=== PATIENT | female | born 1995 | race Hispanic/Latino ===

== ENCOUNTER 2021-10-23 06:36 | Observation (INO) | payer BC ==
[2021-10-19 13:34] LABS: BASOPHILS % (AUTO) 0.5 % (0.0-5.0); HEMATOCRIT 41.4 % (36-48); MEAN CORPUSCULAR HEMOGLOBIN 24.1 pg (27.0-33.0); MEAN CORPUSCULAR HGB CONC 30.7 g/dL (32.0-36.0); MEAN CORPUSCULAR VOLUME 78.7 fL (79-99); MONOCYTES % (AUTO) 6.8 % (3.0-13.0); NEUTROPHILS % (AUTO) 55.6 % (40.0-77.0); PLATELET COUNT (AUTO) 264 K/uL (130-400); RED BLOOD CELL COUNT(AUTO) 5.26 MIL/uL (4.00-5.50); RED CELL DISTRIBUTION WIDTH 14.8 % (11.0-15.5); WHITE BLOOD COUNT (AUTO) 7.7 K/uL (4.8-10.8)
[2021-10-19 13:43] LABS: CREATININE 0.5 mg/dL (0.5-1.5); POTASSIUM 4.6 mmol/L (3.5-5.1)
[2021-10-19 13:47] LABS: PROTHROMBIN TIME 10.9 SEC (9.6-11.6)
[2021-10-19 13:48] LABS: PARTIAL THROMBOPLASTIN TIME 27.7 SEC (26.3-35.5)
[2021-10-22 15:07] VITALS: BP 137/72
[~2021-10-23] VITALS: Ht 170.2 cm; Wt 94.0 kg
[2021-10-23] VITALS (11 sets, daily range): BP systolic 100–146; BP diastolic 60–68
[~2021-10-23 06:36] MED LIST: 0.9% NACL 500ML IV.SOLN 500 ML IV SCH; FLEC50TA3 PO; VERA120T20 PO
[2021-10-23] MEDS ORDERED: 0.9%NACL 1000ML 1,000 ML IV ONE (07:56)
[2021-10-23] MEDS ORDERED: HEPARIN 10,000 UNIT/10ML (1,000 UNIT/ML) VIAL ONE (13:28)
[2021-10-23] MEDS ORDERED: BUPIVACAINE/PF 0.25% 30ML VIAL IJ ONE (13:28)
[2021-10-23] MEDS ORDERED: ISOPROTERENOL HCL 0.2 MG/ML AMP/VIAL/BAG ONE (13:29)
[2021-10-23] MEDS ORDERED: LIDOCAINE HCL 400MG/20ML VIAL ONE (13:30)
[2021-10-23] MEDS ORDERED: FENTANYL CITRATE PF 50 MCG/1 ML 2ML VIAL ONE (13:49)
[2021-10-23] MEDS ORDERED: MIDAZOLAM HCL 1 MG/ML 2ML VIAL ONE (13:49)
[2021-10-23] MEDS ORDERED: MEPERIDINE-PF 50 MG/ML SYG ONE (13:56)
[2021-10-23] MEDS ORDERED: ACETAMINOPHEN WITH CODEINE 1 TAB TAB PO PRN (17:30)
[2021-10-23] MEDS ORDERED: ACETAMINOPHEN 500 MG TABLET PO PRN (17:30)
[2021-10-23] MEDS ORDERED: ZOLPIDEM TARTRATE 5 MG TAB PO PRN (17:30)
[2021-10-24 00:35] VITALS: BP 102/54
[2021-10-24 04:00] VITALS: BP 109/62
[2021-10-24 07:10] VITALS: BP 111/69
[2021-10-24 11:10] VITALS: BP 110/65
== END 2021-10-24 13:30 | disposition home or self-care (01) ==
LOC: DAH 06:36 → UNDOADMOB 06:37 → 4CH 06:37
PROVIDERS: ADMIT Internal Medicine Cardiovascular Disease; ATTEND Internal Medicine Cardiovascular Disease
DX: I49.3 Ventricular premature depolarization (principal)
CPT/HCPCS: 36415; 80048; 84703; 85025; 85610; 85730; 93005 ×2; 93654; 96360; 96361; A4215; A4216; A4221; A4222; A4223 ×3; A4606; A4649 ×2; A4663; C1730; C1731; C1732; C1893; C1894 ×3; G0378 ×20; J1644 ×2; J2175; J2250; J3490; J7030; 99156; 99157; J3010